=== PATIENT | female | born 1960 | race Caucasian/White ===

== ENCOUNTER → 2017-09-27 | Outpatient (CLI) | payer OTHER ==
[~2017-09-27] MED LIST: ALBU8.5H IH; AMLO-96 PO; AMOX-559 PO; ATOR40TA69 PO; BENZ200C15 PO; CLOP75TA PO; CYCL-277 PO; DICL100G39 TOP; GUAI120L3 PO; HYDR-385 PO; ISOS30TA54 PO; LEVO-85 PO; LISI-349 PO; LISI-353 PO; LISI-355 PO; LOR5/325 PO; METHO500 PO; METO25TA23 PO; METO50TA19 PO; NIFE-13 PO; NIFE-15 PO; NIFE60TA95 PO; PAN20 PO; PANT40TA65 PO; PNEI IM; PRED20TA6 PO; Return to Work; TRA50 PO; TRAM-420 PO; TRAZ-133 PO; TRAZ-156 PO; Work Release; ZOLP-358 PO; [UNRECOGNIZED DRUG - CODE] SQ; [UNRECOGNIZED DRUG - OTHER] MC
[2017-09-27 15:52] LABS: PLATELET COUNT, AUTOMATED 251 K/uL (150-450)
== END ==
LOC: LAB 15:35
PROVIDERS: ATTEND Nurse Practitioner Family
DX: I10 Essential (primary) hypertension (principal); E78.00 Pure hypercholesterolemia, unspecified; R60.9 Edema, unspecified
CPT/HCPCS: 36415; 82040; 82247; 82310; 82374; 82435; 82565; 82947; 84075; 84132; 84155; 84295; 84450; 84460; 84520; 85025; 85379

== ENCOUNTER → 2017-09-28 | Outpatient (CLI) | payer OTHER ==
--- NOTE | 2017-09-28 15:05 | RADIOLOGY IMAGING REPORT ---
FACILITY: [facility] - [place] PATIENT NAME: Chloe Gandhi : 1960 MR: [id number] V: [id number] EXAM DATE: ORDERING PHYSICIAN: TANVIR DIAZ TECHNOLOGIST: Location: [facility] Patient: Chloe Gandhi : 1960 Visit/Account:[id number] Date of Sevice: 09/28/2017 Exam type: VENOUS DOPP LOW RIGHT EXTREMIT History: right leg edema - elevated d-dimer Comparison: None. Findings: The right lower extremity veins were imaged including the right common femoral vein greater saphenous vein superficial femoral vein popliteal vein posterior tibial vein peroneal vein anterior tibial vei n revealing no evidence of intraluminal thrombi. The veins were compressible and demonstrated phasic flow. IMPRESSION: 1. No sonographic evidence DVT involving the right lower extremity veins Report Dictated By: Vidhya Brink MD at 09/28/2017 3:00 PM Report E-Signed By: Vidhya Brink MD at 09/28/2017 3:01 PM WSN:[email or web address]
== END ==
LOC: US 13:44
PROVIDERS: ATTEND Nurse Practitioner Family
DX: R60.0 Localized edema (principal)

== ENCOUNTER 2017-11-02 01:40 | Day surgery (SDC) | payer OTHER ==
[~2017-11-02] VITALS: Ht 165.1 cm; Wt 99.8 kg
[~2017-11-02 01:40] MED LIST changes: +PEG4000S14 PO
[2017-11-02] MEDS ORDERED: LIDOCAINE MPF 1% 5 ML VIAL ONE (06:56)
[2017-11-02] MEDS ORDERED: PROPOFOL EMUL(*) 10MG/ML 20 ML 60 ML ONE (06:56)
[2017-11-02 08:14] VITALS: BP 140/75
[2017-11-02] MEDS ORDERED: NORMOSOL R SOLN(*) 1000 ML BAG 1,000 ML IV PRN (09:00)
[2017-11-02] MEDS ORDERED: LIDOCAINE/SOD BICARB 8.4% SYR ID ONE (09:00)
[2017-11-02 10:33] VITALS: BP 118/85
[2017-11-02 10:45] VITALS: BP 132/78
--- NOTE | 2017-11-02 10:46 | Short(Outpt) Discharge Summary ---
Discharge Summary Reason for Hosp/Final Diag: (1) History of colon polyps Status: Chronic Hospital Course & Plan: Colonoscopy with polypectomy x2 completed without problems. (2) Family history of malignant neoplasm of gastrointestinal tract Departure Discharge to: Home, Self Care Discharge Instructions Home Meds Active Scripts Hydrocodone Bit/Acetaminophen (HYDROCODON-ACETAMINOPHEN 5-325) 1 Each Tablet, 1 TAB PO QID Y for PAIN, #120 TAB Prov:VIKI MCCARTHY MD 10/27/17 Metoprolol Succinate (METOPROLOL SUCCINATE) 50 Mg Tab.er.24h, 2 TAB PO DAILY, # 180 TAB 3 Refills Prov:TANVIR DIAZ APRNP-C 10/20/17 Peg 3350/Na Sulf,Bicarb,Cl/Kcl (PEG-3350 AND ELECTROLYTES SOLN) 4,000 Ml Soln.recon, 1 GAL PO ONCE, #1 GAL 0 Refills Prov:JAMIE VENCES MD 10/12/17 Zolpidem Tartrate (ZOLPIDEM TARTRATE) 10 Mg Tablet, 1 TAB PO QHS, #30 TAB 2 Refills Prov:TANVIR DIAZ APRN-C 10/05/17 Clopidogrel Bisulfate (CLOPIDOGREL) 75 Mg Tablet, 1 TAB PO DAILY, #90 TAB 3 Refills Prov:TANVIR DIAZ APRN-C 10/05/17 Pantoprazole Sodium (PANTOPRAZOLE SODIUM) 40 Mg Tablet.dr, 1 TAB PO DAILY, #90 TAB.SR 3 Refills Prov:TANVIR DIAZ APRN-C 10/04/17 Atorvastatin Calcium (ATORVASTATIN CALCIUM) 40 Mg Tablet, 1 TAB PO QDAY, #90 TAB 3 Refills TAKE ONE TABLET BY MOUTH ONCE A DAY AT BED TIME Prov:TANVIR DIAZ APRN-C 10/04/17 Nifedipine (NIFEDIPINE ER) 30 Mg Tab.er.24, 1 TAB PO QDAY, #90 TAB 3 Refills Prov:TANVIR DIAZ APRN-C 05/06/17 Cyclobenzaprine Hcl (CYCLOBENZAPRINE HCL) 5 Mg Tablet, 1 TAB PO BID, #60 TAB 4 Refills Prov:TANVIR DIAZ APRN-C 03/21/17 Reported Medications Diclofenac Sodium 1% Gel (VOLTAREN 1% GEL) 100 Gm Gel..gram., 2 GM TOP QID Y for PAIN 05/14/15 Diet: Regular Activity: As Tolerated Special Instructions: Your colonoscopy was completed without problems and your prep was excellent (Good Job!!). I removed 2 small polyps from your colon and they were sent to pathology. My office will call you in the next week and let you know what the polyps are but, in any case, you will need a colonoscopy in 5 years due to your family history. JAMIE VENCES MD Nov 02, 2017 10:46
[2017-11-02 11:00] VITALS: BP 132/83
[2017-11-02 11:03] VITALS: BP 139/77
== END 2017-11-02 11:45 | disposition short-term general hospital (02) ==
LOC: OR 01:40
PROVIDERS: ATTEND Surgery
DX: Z12.11 Encounter for screening for malignant neoplasm of colon (principal); K63.5 Polyp of colon; Z80.0 Family history of malignant neoplasm of digestive organs; Z86.010 Personal history of colon polyps
CPT/HCPCS: 00811; 45385; 88305; J2001; J2704

== ENCOUNTER → 2018-05-23 | Outpatient (CLI) | payer OTHER ==
[~2018-05-23] MED LIST changes: +AMLO-111 PO; -AMLO-96 PO; -TRAZ-156 PO; +TRAZ50TA34 PO
== END ==
LOC: LAB 15:21
PROVIDERS: ATTEND Internal Medicine Cardiovascular Disease
DX: I10 Essential (primary) hypertension (principal)
CPT/HCPCS: 36415; 82310; 82374; 82435; 82565; 82947; 84132; 84295; 84520

== ENCOUNTER → 2018-11-08 | Outpatient (CLI) | payer OTHER ==
[~2018-11-08] MED LIST changes: -AMLO-111 PO; +AMLO-125 PO; +AMOX500T10 PO; +IPRA3AMP10 IH; +LISI-362 PO
[2018-11-08 15:30] LABS: LDL CHOLESTEROL 79 mg/dl
== END ==
LOC: LAB 14:34
PROVIDERS: ATTEND Internal Medicine Cardiovascular Disease
DX: I25.10 Atherosclerotic heart disease of native coronary artery without angina pectoris (principal); I10 Essential (primary) hypertension
CPT/HCPCS: 36415; 82040; 82247; 82310; 82374; 82435; 82465; 82565; 82947; 83718; 84075; 84132; 84155; 84295; 84450; 84460; 84478; 84520

== ENCOUNTER → 2018-11-13 | Outpatient (CLI) | payer OTHER | LOC: LAB 15:04 | PROVIDERS: ATTEND Nurse Practitioner Family | DX: R74.8 Abnormal levels of other serum enzymes (principal) | CPT/HCPCS: 36415; 82550; 85610 ==

== ENCOUNTER → 2018-11-21 | Outpatient (CLI) | payer OTHER ==
--- NOTE | 2018-11-21 13:21 | RADIOLOGY IMAGING REPORT ---
FACILITY: [facility] PATIENT NAME: Chloe Gandhi : 1960 MR: [id number] V: [id number] EXAM DATE: [id number] ORDERING PHYSICIAN: TANVIR DIAZ TECHNOLOGIST: Location: [facility] [place] Patient: Chloe Gandhi : 1960 Visit/Account:[id number] Date of Sevice: 11/21/2018 LIVER HISTORY: elevated liver enzymes COMPARISON: December 28, 2016 FINDINGS: Gallbladder: Small amount of layering echogenic material seen within the gallbladder likely represent ing sludge. The gallbladder wall does not appear thickened. Liver: There is increased echogenicity throughout the liver which can be seen with fatty infiltration or other infiltrative process. Common duct: Normal, 3.8 mm diameter. Pancreas: Partially obscured by bowel, visualized aspects unremarkable. Right kidney: The small hypoechoic region in the upper pole the right kidney measuring approximately 1.1 cm in diameter appears relatively unchanged. Right kidney measures 9.9 cm in length. There is n o evidence of hydronephrosis. Upper abdominal aorta and IVC: Patent. Ascites: None visualized. IMPRESSION: Increased echogenicity throughout the liver which can be seen with fatty infiltration other infiltrat aleena process Probable small amount of layering gallbladder sludge 1.1 cm hypoechoic region upper pole of the right kidney appears relatively unchanged and may simply r epresent a renal pyramid as no renal mass was demonstrated on the MR the abdomen performed January 05 17 Report Dictated By: Vidhya Brink MD at 11/21/2018 1:12 PM Report E-Signed By: Vidhya Brink MD at 11/21/2018 1:17 PM WSN:[email or web address]
== END ==
LOC: US 01:11
PROVIDERS: ATTEND Nurse Practitioner Family
DX: R74.8 Abnormal levels of other serum enzymes (principal)
CPT/HCPCS: 76705

== ENCOUNTER → 2019-01-12 | Outpatient (CLI) | payer OTHER ==
[~2019-01-12] MED LIST changes: +ROSU5TAB8 PO; -TRAZ50TA34 PO; +TRAZ50TA52 PO
[2019-01-12 13:46] LABS: LDL CHOLESTEROL 173 mg/dl
== END ==
LOC: LAB 13:05
PROVIDERS: ATTEND Nurse Practitioner Family
DX: R74.8 Abnormal levels of other serum enzymes (principal); E78.00 Pure hypercholesterolemia, unspecified
CPT/HCPCS: 36415; 82040; 82247; 82310; 82374; 82435; 82465; 82565; 82947; 83718; 84075; 84132; 84155; 84295; 84450; 84460; 84478; 84520

== ENCOUNTER → 2019-02-23 | Outpatient (CLI) | payer OTHER | LOC: LAB 13:28 | PROVIDERS: ATTEND Nurse Practitioner Family | DX: E78.5 Hyperlipidemia, unspecified (principal); M79.10 Myalgia, unspecified site; Z79.899 Other long term (current) drug therapy | CPT/HCPCS: 36415; 82040; 82247; 82306; 82310; 82374; 82435; 82550; 82565; 82947; 84075; 84132; 84155; 84295; 84450; 84460; 84520 ==